=== PATIENT | female | born 1975 | race Caucasian/White ===

== ENCOUNTER 2019-06-25 16:15 | Emergency (ER) | payer MEDICAID, OTHER ==
[~2019-06-25] VITALS: Ht 162.6 cm; Wt 81.6 kg
[2019-06-25 16:33] VITALS: BP 139/83
[2019-06-25] MEDS ORDERED: cefTRIAXone SOD 1,000 MG VL IM ONE ×2 (17:00)
[2019-06-25] MEDS ORDERED: IBUPROFEN 800 MG TAB PO ONE (17:00)
== END 2019-06-25 17:39 | disposition home or self-care (01) ==
LOC: ER 16:15
DX: L03.311 Cellulitis of abdominal wall (principal)
CPT/HCPCS: 96372; 99284; J0696